=== PATIENT | male | born 1995 | race Caucasian/White ===

== ENCOUNTER 2017-08-10 14:45 | Emergency (ER) | payer BC, SELFPAY ==
[2017-08-10 14:45] VITALS: BP 154/93; PULSE 114; RESP 18; TEMP 36.8; O2SAT 97; BMI 39.6
--- NOTE | 2017-08-10 15:16 | ED.VISSUMM ---
- ER Visit Summary Date of Service: 08/10/17 Chief Complaint: Muscle spasm History of Present Illness: The patient is a 21 M who states that about 40 minutes prior to presentation he began to feel a muscle spasm on the left side of his neck down into his shoulder. No chest pain or shortness of breath no weakness. He has a history of anxiety. He was concerned to presented here. No history of fall or injury. Physical Examination: Afebrile initial heart rate 114 Patient appears anxious Patient has tenderness in the distribution of the trapezius in the posterior left shoulder and left paraspinal cervical musculature no midline tenderness Normal strength and sensation of the extremities normal radial pulse Test Results: Not indicated Emergency Department Course and Treatment: Patient presents for muscle spasm in the distribution of the trapezius. He was instructed on supportive care including heat massage and anti-inflammatory use. He was discharged. Treatment Plan: [] Disposition: Discharge Impression: Muscle spasm This note was generated with [employer] dictation software. It may contain incorrect words, spelling, and punctuation that were not noted in review of the chart prior to signing ED Disposition - Plan for ED Patient: Chief Complaint: Numb/Ting Referrals: [facility] Doctor,Out of [Primary Care Provider] -
--- NOTE | 2017-08-10 15:18 | ED.DEP ---
ED Disposition - Plan for ED Patient: Chief Complaint: Numb/Ting Instructions: ED Spasm Muscle Referrals: [facility] Doctor,Out of [Primary Care Provider] -
--- NOTE | 2017-08-10 15:19 | DCINST.ED_ITS ---
ED Disposition - Plan for ED Patient: Chief Complaint: Numb/Ting Instructions: ED Spasm Muscle Referrals: [facility] Doctor,Out of [Primary Care Provider] -
[2017-08-10 15:31] VITALS: BP 140/97; PULSE 96; PULSE 98; RESP 18; O2SAT 100
== END 2017-08-10 15:39 | disposition home or self-care (01) ==
LOC: ED 15:32
PROVIDERS: Emergency Provider Emergency Medicine
DX: M62.838 Other muscle spasm (principal); F41.9 Anxiety disorder, unspecified; K21.9 Gastro-esophageal reflux disease without esophagitis; Z72.0 Tobacco use
CPT/HCPCS: 99283

== ENCOUNTER 2017-08-30 01:54 | Emergency (ER) | payer BC, SELFPAY ==
[2017-08-30 01:55] VITALS: BP 144/92; PULSE 93; RESP 18; TEMP 36.9; O2SAT 97; BMI 40.1
--- NOTE | 2017-08-30 02:15 | ED.DCSUM_ITS ---
- ER Visit Summary Date of Service: 08/30/17 Chief Complaint: [] Chest pain anxiety History of Present Illness: The patient is a 21 M presents with chest pain and chronic anxiety for last several months. Denies any associated symptoms. Feels it in the center of his chest. He is on Celexa for anxiety which is helping and Ativan as needed. He has not taken this. He denies any cardiac PE or dissection risk factors. He has been worked up for this in the past. Negative Holter monitor. I have seen him multiple times at [facility] ER before it closed. He came in sometimes multiple times per week for the same complaints. He has never had an acute coronary coronary syndrome PE or dissection. Most of this is secondary to chronic anxiety. Physical Examination: Vital signs reviewed General: Well-nourished well-developed Head: Normocephalic atraumatic Eyes: Pupils equal round and reactive to light extraocular movements intact ENT: TMs clear no hemotympanum no trauma Neck: Nontender full range of motion Cardiovascular: Regular rate rhythm no murmurs normal S1-S2 Respiratory: No distress clear to auscultation bilaterally chest nontender Abdomen: Soft nontender nondistended normal bowel sounds no masses Back: Nontender no CVA tenderness Extremities: Nontender active range of motion ?4 extremities no trauma Skin: Normal color no trauma Neuro alert oriented cranial nerves II through XII intact normal strength sensation reflexes Test Results: [] Emergency Department Course and Treatment: [] Patient at this time he does not appear to be having a panic attack. He is resting comfortably. EKG shows sinus at 87 without acute ischemia. Given 1 dose of Toradol for his chest discomfort. This may be musculoskeletal however I think this is likely likely psychological. He will follow-up as an outpatient. Treatment Plan: [] Disposition: [] Impression: [] Chest pain chronic Chronic anxiety This note was generated with [employer] dictation software. It may contain incorrect words, spelling, and punctuation that were not noted in review of the chart prior to signing ED Disposition - Plan for ED Patient: Chief Complaint: Chest Pain Referrals: [facility] Doctor,Out of [Primary Care Provider] -
--- NOTE | 2017-08-30 02:15 | ED.DEP ---
ED Disposition - Plan for ED Patient: Disposition: Home or Assisted Living Chief Complaint: Chest Pain Instructions: ED Chest Pain Costochondritis, ED Chest Pain NonCardiac Referrals: [facility],Out of [Primary Care Provider] -
[2017-08-30] MEDS: Ketorolac 60 MG/2 ML Vial IM (02:16)
[2017-08-30 02:32] VITALS: BP 140/89; PULSE 95; RESP 18; O2SAT 95
== END 2017-08-30 02:36 | disposition home or self-care (01) ==
PROVIDERS: Emergency Provider Emergency Medicine
DX: R07.9 Chest pain, unspecified (principal); F41.9 Anxiety disorder, unspecified; K21.9 Gastro-esophageal reflux disease without esophagitis; Z72.0 Tobacco use
CPT/HCPCS: 96372; 99282

== ENCOUNTER 2017-08-31 23:11 | Emergency (ER) | payer BC, SELFPAY ==
--- NOTE | 2017-08-30 02:00 | EKG12_ITS ---
Test Reason : CP Blood Pressure : / mmHG Vent. Rate : 087 BPM Atrial Rate : 087 BPM P-R Int : 138 ms QRS Dur : 084 ms QT Int : 348 ms P-R-T Axes : 040 038 016 degrees QTc Int : 418 ms Normal sinus rhythm Normal ECG Confirmed by DENNISE BURT, HOLLI ([id number]), editor house organ LISY THURMAN ([id number] on 09/02/2017 4:38:25 PM Referred By: ISAIAH Confirmed By:HOLLI BOWDEN MD
[2017-08-31 23:12] VITALS: BP 152/87; PULSE 104; RESP 17; TEMP 36.4; O2SAT 99; BMI 39.5
--- NOTE | 2017-08-31 23:25 | ED.VISSUMM ---
- ER Visit Summary Date of Service: 08/31/17 Chief Complaint: Left upper quadrant and epigastric abdominal pain History of Present Illness: The patient is a 21 M hx. of gastritis, reflux, anxiety and depression. He has never had any prior abdominal surgeries. States he has had this similar pain for months. It is there all the time. It is worse with eating or drinking fluids. He denies any melena. He denies any fever. He denies any weight loss. Denies any abdominal trauma. He does use orthotics at home and a GI cocktail type of concoction. He has an upcoming scope on Friday at [facility]. Physical Examination: Well-appearing young male. Vital signs are stable afebrile. Pulse ox 99% on room air no signs of hypoxia. He is in no distress. HEENT exam unremarkable. Neck nontender no lymphadenopathy. Lungs clear to auscultation bilaterally. Heart regular rate and rhythm no murmur. Chest wall nontender. Abdomen is soft. Nondistended. Normal bowel sounds. Both the right upper and right lower quadrants are completely nontender. No Rosales sign. No McBurney's point tenderness. There is no hernias or masses. He is mildly tender in epigastric region of left upper quadrant both consistent with gastritis. He is moving all 4 extremities. They are neurovascularly intact. Nontender. No edema. Back exam nontender. Neurologically is awake and alert without focal deficits. Test Results: None Emergency Department Course and Treatment: Patient be treated with a GI cocktail and p.o. Pepcid. Treatment Plan: Discharged to home continue on his current therapy with Protonix and Maalox. Follow-up with his GI doctor at [facility] and undergo the endoscopy he has scheduled for Friday. Return to the ER if increasing and intractable pain, fever or melena. Disposition: Discharge Impression: Epigastric and left upper quadrant abdominal pain secondary to gastritis This note was generated with [employer] dictation software. It may contain incorrect words, spelling, and punctuation that were not noted in review of the chart prior to signing ED Disposition - Plan for ED Patient: Chief Complaint: Abd Pain Referrals: [facility] Doctor,Out of [Primary Care Provider] -
[2017-08-31] MEDS: Famotidine 20 MG Tablet 40 MG PO (23:29)
--- NOTE | 2017-08-31 23:29 | ED.DCSUM_ITS ---
- ER Visit Summary Date of Service: 08/31/17 Chief Complaint: Left upper quadrant and epigastric abdominal pain History of Present Illness: The patient is a 21 M hx. of gastritis, reflux, anxiety and depression. He has never had any prior abdominal surgeries. States he has had this similar pain for months. It is there all the time. It is worse with eating or drinking fluids. He denies any melena. He denies any fever. He denies any weight loss. Denies any abdominal trauma. He does use orthotics at home and a GI cocktail type of concoction. He has an upcoming scope on Friday at [facility]. Physical Examination: Well-appearing young male. Vital signs are stable afebrile. Pulse ox 99% on room air no signs of hypoxia. He is in no distress. HEENT exam unremarkable. Neck nontender no lymphadenopathy. Lungs clear to auscultation bilaterally. Heart regular rate and rhythm no murmur. Chest wall nontender. Abdomen is soft. Nondistended. Normal bowel sounds. Both the right upper and right lower quadrants are completely nontender. No Rosales sign. No McBurney's point tenderness. There is no hernias or masses. He is mildly tender in epigastric region of left upper quadrant both consistent with gastritis. He is moving all 4 extremities. They are neurovascularly intact. Nontender. No edema. Back exam nontender. Neurologically is awake and alert without focal deficits. Test Results: None Emergency Department Course and Treatment: Patient be treated with a GI cocktail and p.o. Pepcid. Treatment Plan: Discharged to home continue on his current therapy with Protonix and Maalox. Follow-up with his GI doctor at [facility] and undergo the endoscopy he has scheduled for Friday. Return to the ER if increasing and intractable pain, fever or melena. Disposition: Discharge Impression: Epigastric and left upper quadrant abdominal pain secondary to gastritis This note was generated with [employer] dictation software. It may contain incorrect words, spelling, and punctuation that were not noted in review of the chart prior to signing ED Disposition - Plan for ED Patient: Chief Complaint: Abd Pain Referrals: [facility] Doctor,Out of [Primary Care Provider] -
--- NOTE | 2017-08-31 23:30 | DCINST.ED_ITS ---
ED Disposition - Plan for ED Patient: Disposition: Home or Assisted Living Chief Complaint: Abd Pain Instructions: ED Abdominal Pain Unkn Cause, ED Gastritis Referrals: [facility] Doctor,Out of [Primary Care Provider] - Keep Ham appointment Additional Instructions: Return if fever, increasing pain, throwing up blood or black or bloody stools. Keep your scheduled appointment and upper endoscopy at [facility] this week. Continue your Protonix and GI cocktail at home.
--- NOTE | 2017-08-31 23:48 | ED.RN ---
DISCHARGE INSTRUCTIONS GIVEN TO AND REVIEWED WITH PATIENT, PATIENT DENIES QUESTIONS OR CONCERNS AND VOICES UNDERSTANDING OF DISCHARGE INSTRUCTIONS. PT AMBULATES OUT OF ROOM WITHOUT DIFFICULTY.
== END 2017-08-31 23:48 | disposition home or self-care (01) ==
PROVIDERS: Emergency Provider Emergency Medicine
DX: K29.70 Gastritis, unspecified, without bleeding (principal); K21.9 Gastro-esophageal reflux disease without esophagitis; Z72.0 Tobacco use; F41.9 Anxiety disorder, unspecified; F32.9 Major depressive disorder, single episode, unspecified
CPT/HCPCS: 93005; 99283

== ENCOUNTER 2017-09-03 15:48 | Emergency (ER) | payer BC, SELFPAY ==
[2017-09-03 15:50] VITALS: BP 156/99; PULSE 87; RESP 13; TEMP 36.8; O2SAT 94; BMI 39.8
--- NOTE | 2017-09-03 16:02 | EKG12_ITS ---
Test Reason : CHEST PAIN Blood Pressure : / mmHG Vent. Rate : 088 BPM Atrial Rate : 088 BPM P-R Int : 144 ms QRS Dur : 084 ms QT Int : 346 ms P-R-T Axes : 033 036 031 degrees QTc Int : 418 ms Normal sinus rhythm Normal ECG Confirmed by HOLLI BOWDEN MD ([id number]), department editor LISY THURMAN ([id number]) on 09/08/2017 2:28:50 PM Referred By: Confirmed By:HOLLI BOWDEN MD
--- NOTE | 2017-09-03 16:23 | RAD_ITS ---
STUDY: X-RAY CHEST REASON FOR EXAM: Male, 21 years old. Chest pain TECHNIQUE: Frontal and lateral views of the chest. COMPARISON: None. FINDINGS: The lungs are clear and expanded. There is no demonstrated pleural abnormality. Normal size heart. Normal mediastinum and christian. Normal visualized pulmonary arteries. Normal visualized aortic arch and descending thoracic aorta. Normal visualized thoracic spine. Normal visualized ribs, clavicles, and shoulders. There is no demonstrated abnormality of the visualized soft tissue structures of the upper abdomen. RAD/Chest PA and Lateral IMPRESSION: Normal x-ray examination of the chest. Electronically Signed: Jose Elias Espino MD at 17:18 EST , Service support ,
[2017-09-03 16:24] LABS: Anion Gap 8 (5-15); BUN 13 mg/dL (7-18); BUN/Creat Ratio 10.7 RATIO (10-20); Calcium,Total 8.9 mg/dL (8.5-10.1); Chloride 106 mmol/L (98-107); Creatinine, Serum 1.21 mg/dL (0.70-1.30); EST Glomerular Filtration Rate 81 mL/min (>60); Est Glom Filt Rate - Afr Amer 98 mL/min (>60); Estimated Creatinine Clearance 110.06 ml/min; Glucose 90 mg/dL (74-106); Potassium 3.9 mmol/L (3.5-5.1); Sodium Level 142 mmol/L (136-145)
[2017-09-03 16:31] LABS: Absolute Lymphocyte Count 2.24 X10^3/ul (0.83-4.51); Absolute Neutrophil Count 5.8 X10^3/uL (2.0-7.7); Basophil# 0.02 X10^3/uL; Basophil% 0.2 % (0-1); Eosinophils% 1.1 % (0-5); Hematocrit 49.9 % (40-54); Hemoglobin 17.4 g/dl (13.0-16.5); Lymphocyte # 2.24 X10^3/ul (4.0); Lymphocyte % 25.5 % (19-41); Mean Corp Hgb Conc 34.9 g/gl (32-36); Mean Corpuscular Hgb 29.3 pg (27.0-32.0); Mean Platelet Vol. 9.9 fl (6.2-12.0); Monocyte# 0.59 X10^3/uL; Monocyte% 6.7 % (0-10); Neutrophil # 5.81 X10^3/uL (2.7-7.7); Neutrophil % 66.3 % (47-70); Platelet Count 200 K/mm3 (150-450); RBC Distribution Width CV 12.6 % (11.6-14.6); Red Blood Count 5.94 M/mm3 (4.6-6.2); White Blood Count 8.8 K/mm3 (4.4-11.0)
[2017-09-03 16:33] LABS: POSITIVE DIFFERENTIAL NO; POSITIVE MORPHOLOGY NO
[2017-09-03 16:34] LABS: POSITIVE COUNT NO
[2017-09-03 16:58] LABS: D-Dimer Quantitative (DVT/PE) < 0.27 FEU/ug/m (0.27-0.49)
--- NOTE | 2017-09-03 17:52 | ED.RN ---
PAGED DR TENORIO FOR DR RAMIREZ
--- NOTE | 2017-09-03 18:27 | ED.VISSUMM ---
- ER Visit Summary Date of Service: 09/03/17 Chief Complaint: Shortness of breath History of Present Illness: The patient is a 21 M who complains of shortness of breath and chest pressure for months. He has been having symptoms recurrently. He does note a history of really bad anxiety. He is uncertain if this is related to anxiety. He did have an EGD yesterday and was told he had some inflammation of his esophagus and stomach. He has a follow-up appointment today are with gastroenterology. However he states his pain today is exactly what he has been having for months and before his EGD and is unchanged. He describes this as a pressure mostly in his throat. He is uncertain if it is related to anxiety or something else. Physical Examination: Afebrile vitals are normal Patient resting comfortably in no distress Heart regular rate and rhythm Lungs are clear Abdomen soft Extremities nontender Alert Test Results: EKG shows normal sinus rhythm at a rate of 88. CBC BMP troponin and d-dimer all normal and chest x-ray is also normal. Emergency Department Course and Treatment: He is resting comfortably on reevaluation. 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 Given that this is the same symptoms the patient has been having for months before his EGD and has a normal chest x-ray normal laboratory studies I feel the likelihood of process such as Boerhaave syndrome very unlikely and do not believe any further imaging is indicated. He will follow-up with his gastroenterology is tomorrow. He understands return for new or worsening symptoms and was discharged home. Treatment Plan: [] Disposition: Discharge Impression: Chest pain This note was generated with [employer] dictation software. It may contain incorrect words, spelling, and punctuation that were not noted in review of the chart prior to signing ED Disposition - Plan for ED Patient: Chief Complaint: Shortness of Breath Referrals: [facility] Doctor,Out of [Primary Care Provider] -
--- NOTE | 2017-09-03 18:35 | ED.DEP ---
ED Disposition - Plan for ED Patient: Chief Complaint: Shortness of Breath Instructions: ED Chest Pain NonCardiac Referrals: [facility],Out of [Primary Care Provider] -
[2017-09-03 18:40] VITALS: BP 147/89; PULSE 71; RESP 16; O2SAT 98
== END 2017-09-03 18:40 | disposition home or self-care (01) ==
PROVIDERS: Emergency Provider Emergency Medicine
DX: R07.9 Chest pain, unspecified (principal); R06.00 Dyspnea, unspecified; F41.9 Anxiety disorder, unspecified; K21.9 Gastro-esophageal reflux disease without esophagitis; Z72.0 Tobacco use
CPT/HCPCS: 71046; 80048; 84484; 85025; 85379; 93005; 99284; A4216